=== PATIENT | male | born 1945 | race Caucasian/White ===

== ENCOUNTER 2018-01-16 10:51 | Inpatient (IN) | payer MEDICARE ==
[2018-01-16] MEDS ORDERED: Piperacillin/Tazobactam 4.5 GM VIAL ONE (11:18)
[2018-01-16] MEDS ORDERED: Sodium Chloride 0.9% 100 ML ONE (11:18)
[2018-01-16 11:46] LABS: INR-International Normal Ratio 1.2; PTT 29.5 SEC (22.9-36.1)
[2018-01-16 11:49] LABS: ALT (SGPT) 94 U/L (8-55); AST (SGOT) 59 U/L (5-34); Albumin 4.5 g/dL (3.4-4.8); Alkaline Phosphatase 95 U/L (40-150); Anion Gap 26 mmol/L (10-20); BUN (Urea Nitrogen) 20 mg/dL (8.4-25.7); Bilirubin, Total 11.9 mg/dL (0.2-1.2); Calc. Creatinine Clearance 0 mL/min (70-130); Calcium 9.1 mg/dL (7.8-10.44); Carbon Dioxide 17 mmol/L (23-31); Chloride 99 mmol/L (98-107); Estimated GFR-MDRD 65; Glucose 108 mg/dL (83-110); Lipase 314 U/L (8-78); Protein, Total 7.5 g/dL (5.8-8.1); Sodium 138 mmol/L (136-145)
[2018-01-16 11:54] LABS: Band 12 % (5-11); Hemoglobin 16.3 g/dL (14.0-18.0); Lymphocytes 20 % (21-51); MDiff Complete? YES; Mean Corpuscular HGB CONC 34.6 g/dL (32.0-36.0); Mean Corpuscular Hemoglobin 32.4 pg (27.0-31.0); Mean Corpuscular Volume 93.6 fL (78.0-98.0); Mean Platelet Volume 8.6 fL (7.4-10.4); Neutrophil 67 % (42-75); PLT Morphology Comment Appears Adequate; Platelet Count 121 thou/uL (130-400); RBC Distribution Width 12.6 % (11.5-14.5); RBC Morphology Normal; Red Blood Cell (RBC) Count 4.98 mill/uL (4.70-6.10); Vacuoles SLIGHT; White Blood Cell (WBC) Count 1.9 thou/uL (4.8-10.8)
--- NOTE | 2018-01-16 11:59 | RAD ---
TWO VIEWS CHEST: Comparison: None. History: Cough. FINDINGS: Two views of the chest shows a normal sized cardiomediastinal silhouette. There is a moderate hiatal hernia. There is no evidence of consolidation, mass, or pleural effusion. IMPRESSION: 1. No evidence of acute cardiopulmonary disease. 2. Hiatal hernia. POS: [facility]
[2018-01-16] MEDS ORDERED: Acetaminophen 650 MG Suppository ONE ×2 (12:24→16:26)
[2018-01-16 12:30] LABS: CKMB 2.1 ng/mL (0-6.6); Troponin I Less than 0.010 ng/mL (< 0.028)
--- NOTE | 2018-01-16 12:30 | ULT ---
RIGHT UPPER QUADRANT ULTRASOUND: 01/16/2018 PROVIDED CLINICAL HISTORY: Jaundice and abdominal pain. FINDINGS: The pancreas is largely obscured. The liver demonstrates no evidence for mass or intrahepatic biliar y ductal dilatation. The liver appears mildly enlarged, measuring about 19 cm in craniocaudal dimens ion at the right hepatic lobe. The common duct is prominent, measuring 6 to 7 mm. Multiple shadowin g echogenic foci are seen within the gallbladder lumen, compatible with gallstones. There is no defi nite wall thickening or pericholecystic fluid. Sonographic Belle sign is reported as positive. The right kidney demonstrates no evidence for hydronephrosis or mass. IMPRESSION: 1. Cholelithiasis with reported positive sonographic Belle sign. Correlate with concerns for acute cholecystitis. 2. Mildly prominent common duct. Correlate with laboratory values. POS: [facility]
[2018-01-16 13:08] LABS: Bilirubin Large (Negative); Blood, Urine Negative (Negative); Clarity Clear (Clear); Glucose, Urine (Dipstick) Negative (Negative); Leukocyte Negative (Negative); Nitrite Negative (Negative); Protein, Urine (Dipstick) 30 mg/dL (Neg-Trace); Specific Gravity, Urine 1.025 (1.005-1.030); pH, Urine 5.5 (5.0-9.0)
[2018-01-16 13:15] LABS: Bacteria/HPF None Seen HPF (None Seen); Other Casts/LPF 0-3 COARSE GRAN LPF (0-3 Hyaline); RBC/HPF 0-3 HPF (0-3); Renal Epithelial 0-3 HPF (0-3); Squamous Epithelial None Seen HPF (0-3); Transitional Epithelial 0-3 HPF (0-3); WBC/HPF None Seen HPF (0-3)
[2018-01-16] MEDS ORDERED: Promethazine HCl 25 MG/ML VIAL ONE (13:17)
[2018-01-16 15:44] LABS: Lactic Acid 1.7 mmol/L (0.5-2.2)
[2018-01-16 17:49] LABS: HBCM Index 0.07 S/CO (0-0.79); HBSAg Index 0.21 S/CO (0-0.99); Hep A IgM AB Non-Reactive (NonReactive); Hep A IgM S/CO 0.06 S/CO (0-0.79); Hep B Surf Ag Non-Reactive S/CO (NonReactive); Hep C IgG Ab Non-Reactive (NonReactive); Hep C Index 0.09 S/CO (0-0.79); Hepatitis B Core IgM Abs Non-Reactive (NonReactive)
[2018-01-16] MEDS ORDERED: Acetaminophen 650 MG Suppository PR PRN (17:55)
[2018-01-16] MEDS ORDERED: Piperacillin/Tazobactam 4.5 GM in Sodium Chloride 0.9% 100 ML IVPB SCH (18:00)
[2018-01-16 18:17] VITALS: BMI 23.9
[2018-01-16] MEDS ORDERED: Morphine 2 MG/ML SYRINGE SLOW IVP PRN (19:22)
[2018-01-16] MEDS: Sodium Chloride 0.9% 1,000 ML IV SCH (20:43)
[2018-01-16] MEDS: Piperacillin/Tazobactam 3.375 GM in Sodium Chloride 0.9% 100 ML IVPB SCH (20:44)
[2018-01-16] MEDS: Famotidine/PF 20 mg/2ml Vial SLOW IVP SCH (20:45)
[2018-01-16] MEDS: Vancomycin HCl 1 GM in Premix Bag 1 BAG IVPB SCH (21:50)
--- NOTE | 2018-01-16 22:05 | CON ---
DATE OF CONSULTATION: 01/16/2018 CHIEF COMPLAINT: Jaundice. HISTORY OF PRESENT ILLNESS: This is a 72-year-old male with a known history of gallstones, jaundice, or pancreatitis who presents with diffuse abdominal pain, pain in the right upper quadrant and jaund ice. He is seen in the emergency department where he was found to have gallstones, elevated bilirubi n as well as transaminases. Again, no previous known history of gallstones. He has never had sympto ms in the upper abdomen. He is in telemetry now and he has been hemodynamically stable. PAST MEDICAL HISTORY: He denies. PAST SURGICAL HISTORY: Cataracts. MEDICINES: None. ALLERGIES: No known drug allergies. SOCIAL HISTORY: No smoking, alcohol or other drugs. REVIEW OF SYSTEMS: Ten system review of systems otherwise negative described above. FAMILY HISTORY: Noncontributory to GI malignancy or anesthetic related complication. PHYSICAL EXAMINATION: VITAL SIGNS: Blood pressure is 160/74, pulse 87, respirations are 16. He is afebrile. HEENT: Sclerae are icteric. His oropharynx is clear. NECK: No lymphadenopathy. CHEST: Clear. HEART: Regular rate and rhythm. ABDOMEN: Soft, is mildly tender in the right upper quadrant. No guarding or rebound. EXTREMITIES: No ischemia or edema to extremities. LABORATORY DATA: White blood cell count 1.9, hemoglobin 16, platelet count is 121. He has 12 bands. PT/INR normal. Chemistry: Sodium 138, potassium 4.0, creatinine 1.1, bilirubin 11.9, AST and ALT are 59 and 94. Alkaline phosphatase normal at 95, lipase 314. Hepatitis series negative. ASSESSMENT: Choledocholithiasis and cholelithiasis. PLAN: I do recommend IV antibiotics, probably ERCP first given the extent of the elevation of his bi lirubin. We will discuss with Dr. Schmitz timing of laparoscopic cholecystectomy at time of cholecystectomy, but otherwise I would do that on Sunday.
--- NOTE | 2018-01-16 22:27 | HP ---
CHIEF COMPLAINT: Abdominal pain. HISTORY OF PRESENT ILLNESS: Patient is a 72-year-old male who has no substantial past medical history who was in his usual state of health until a couple of days ago. At that evening, the patient experienced some fevers and chills thought he had actually eaten some food that may have been bad. Overnight, he had chills got to the bathtub and warmed himself up. Following day, he was tired, but was feeling somewhat better. This morning, patient got up, got dressed. We are planning on going to [place]. He had his usual morning cup of coffee, which went well yesterday, but today did not sit well. He started developing some right upper quadrant pain. He described it as a bloating-type pain that was intermittent and 4-5/10 at worst, it was not positional in nature, but it did continue to get worse and he eventually decided to come to the emergency department. He had no associated nausea, vomiting, or diarrhea. He does report that his urine has been tea colored for the last couple of days as well. REVIEW OF SYSTEMS: Negative. Thorough 10-system review except for those things mentioned in the history of present illness. PAST MEDICAL HISTORY: None. PAST SURGICAL HISTORY: Cataractectomy. FAMILY HISTORY: Father of lung cancer. Mother at 93. SOCIAL HISTORY: Patient is a nonsmoker, nondrinker, nondrug user. He is . He is FULL CODE. His would be his surrogate decision maker. ALLERGIES: None. MEDICATIONS: None. PHYSICAL EXAMINATION: VITAL SIGNS: Temperature 98.2, pulse 95, respirations 16, O2 sat 97% on room air, BP 109/71. GENERAL APPEARANCE: Age appropriate male. He is in no distress, appears nontoxic. He is awake, alert, oriented, pleasant, laughing, and joking. HEENT: PERRL. No OP lesions. NECK: Supple and symmetric. CARDIOVASCULAR: Regular rate and rhythm without murmurs, gallops, or rubs. LUNGS: Clear to auscultation bilaterally. ABDOMEN: Soft, nontender, nondistended. Positive bowel sounds, no masses, no organomegaly, no rebound tenderness, and no Belle's sign. SKIN: Warm and dry without edema. LABORATORY DATA: White count 1.9, hemoglobin 16.3, platelets 121. PT 15.0, INR 1.2. Sodium 138, potassium 4.0, chloride 99, CO2 of 17, BUN 20, creatinine 1.1, glucose 108. Lactic acid 3.5, calcium 9.1, AST 59, ALT 94. Ammonia is 41. Troponin less than 0.01. Albumin 4.5. Lipase was 314. Repeat lactic acid is 1.7. Urinalysis is mo colored and large bilirubin. Flu A and B are negative. Chest x-ray is negative. Abdominal ultrasound shows cholelithiasis with reported positive Belle sign. Mild prominent common duct. There is shadowing within the gallbladder lumen consistent with gallstones. No definitive wall thickening or pericholecystic fluid. The liver appeared enlarged. There are no masses in the liver. IMPRESSION AND PLAN: 1. Sepsis. Patient has leukopenia with significant fever and lactic acidosis concerning for sepsis with possible cholecystitis, although that is not entirely clear. Patient has received vancomycin and Zosyn in the ER. We will continue with that for now. He is getting hydrated. We will continue with some IV fluids. 2. Possible cholecystitis. Patient has gallstones without a whole lot of evidence of inflammation, but he does have a bit of a dilated common bile duct. He certainly has significant bilirubinemia with some transaminitis. He is not significantly tender right now in his right upper quadrant, but that appears to come and go. I have consulted GI and the plan is for ERCP in the morning. Also, consulting General Surgery who was contacted by the emergency room physician. 3. Leukopenia. Patient likely has leukopenia secondary to early sepsis. 4. Thrombocytopenia, again likely due to some early sepsis. We will repeat lab values in the morning. 5. We will use SCDs for deep venous thrombosis prophylaxis. Hold off on any other anticoagulation for now. 6. We will give PUD prophylaxis with Pepcid. MTDD
[2018-01-17] MEDS: Piperacillin/Tazobactam 3.375 GM in Sodium Chloride 0.9% 100 ML IVPB SCH ×4 (02:23→20:20)
[2018-01-17 04:16] LABS: ALT (SGPT) 52 U/L (8-55); AST (SGOT) 38 U/L (5-34); Albumin 2.9 g/dL (3.4-4.8); Alkaline Phosphatase 55 U/L (40-150); Anion Gap 12 mmol/L (10-20); BUN (Urea Nitrogen) 20 mg/dL (8.4-25.7); Bilirubin, Total 9.2 mg/dL (0.2-1.2); Calc. Creatinine Clearance 83 mL/min (70-130); Calcium 7.4 mg/dL (7.8-10.44); Carbon Dioxide 20 mmol/L (23-31); Chloride 110 mmol/L (98-107); Estimated GFR-MDRD 81; Globulin 2.2 g/dL (2.4-3.5); Glucose 93 mg/dL (83-110); Potassium 3.8 mmol/L (3.5-5.1); Protein, Total 5.1 g/dL (5.8-8.1); Sodium 138 mmol/L (136-145)
[2018-01-17 04:59] LABS: #Lymphocytes 1.1 thou/uL (1.20-3.40); #Monocytes 0.7 thou/uL (0.11-0.59); #Neutrophils 10.5 thou/uL (1.40-6.50); %Basophils 0.1 % (0.0-1.0); %Eosinophils 0.2 % (0.0-10.0); %Lymphocytes 8.6 % (21.0-51.0); %Neutrophils 85.1 % (42.0-75.0); Hemoglobin 12.2 g/dL (14.0-18.0); Mean Corpuscular HGB CONC 34.5 g/dL (32.0-36.0); Mean Corpuscular Hemoglobin 34.6 pg (27.0-31.0); Mean Platelet Volume 7.8 fL (7.4-10.4); Platelet Count 104 thou/uL (130-400); RBC Distribution Width 12.8 % (11.5-14.5); Red Blood Cell (RBC) Count 3.53 mill/uL (4.70-6.10); White Blood Cell (WBC) Count 12.3 thou/uL (4.8-10.8)
--- NOTE | 2018-01-17 08:27 | CON ---
DATE OF CONSULTATION: 01/16/2018 REASON FOR CONSULTATION: Abdominal pain, nausea, fever, and chills. HISTORY OF PRESENT ILLNESS: Mr. Cas Vaughan is a very pleasant 72-year-old male had no p revious health problems. The patient has had no heart disease, lung disease, diabetes, hypertension. He feels very healthy. He seldom to see a doctor. The patient developed fever and chills on night without any abdominal pain. He did feel bloated and distended and uncomfortable. He took so me Tylenol and his fever broke loose and he felt better and went to sleep. On Sunday, the whole Sun, he had no problems at all. This morning, he felt to have abdominal pain, fever, and chills. T he pain is actually over the right upper quadrant epigastric area. The pain was fzue-ma-rjjvnaka wit h nausea. He also had fever and chills. He went to [facility] and had an abdominal so nogram. Apparently he was used to Tylenol and the fever broke loose and also the pain actually subsi ded. The patient actually wanted to go home, he felt better, but because of abnormal LFTs and also t he sonogram showing gallstones, he was advised to be hospitalized. The patient was transferred from [facility] to the [facility] in [place]. I saw him in the Intermediate ICU this evening. He appears very comfortable. He has no more fever o r chills. He feels fine and his abdominal pain is almost gone. The patient had no similar episodes in the past. Bowel movements are regular. No history of hematochezia or melena. The patient has no relevant history. ALLERGIES: None. SOCIAL HISTORY: The patient is . Does not smoke or drink alcohol. MEDICAL ILLNESSES: None. He has history of heart murmur 30 or 40 years ago, but no nobody ever ment ioned subsequently his heart murmur. As mentioned, the years, he has no hypertension, heart disease, lung disease, diabetes, etc. SURGERIES: Cataract surgery. FAMILY HISTORY: Both parents had gallbladder removed. Father of lung cancer and he was a smoke r. Mother of heart disease at age 93. HOME MEDICATIONS: None. REVIEW OF SYSTEMS: A 10-point system review. Constitutional: He has a good energy level. No fatig ue, no weight loss. History of fever and chills over the last couple of days. HEENT: Eyes: Vision is good. No diplopia. No blurring of vision. Ears: No hearing loss, no ear pain. Nose: No nose bleed. Throat: No sore throat or cough. Respiratory System: No history of chronic cough, hemoptys is, dyspnea. Cardiovascular System: No chest pain, no palpitation, no orthopnea or PND. Gastrointe stinal: As mentioned in history of present illness. Genitourinary: No dysuria, hematuria or freque ncy of urination. Musculoskeletal: Unremarkable. Endocrine: Unremarkable. Hematological: Unrema rkable. PHYSICAL EXAMINATION: GENERAL: The patient is very comfortable. He is awake, alert, and communicative. He is in no distr ess. He is actually afebrile at the present time. VITAL SIGNS: Pulse is around 90, blood pressure is 127/70. HEENT: Conjunctivae icteric. NECK: Supple. No adenitis or thyromegaly noted. CARDIOVASCULAR SYSTEM: First and second heart sounds normal. No murmur heard. LUNGS: Clear to auscultation. ABDOMEN: Soft. Abdomen is nondistended. Abdomen is minimally tender on deep palpation in the right upper quadrant. There is no rebound or guarding. No organomegaly or masses. Bowel sounds are norm al. LABORATORY DATA: His serum lipase is slightly high around 314. The bilirubin level is 11 mg. His t ransaminases are not very much elevated. An abdominal sonogram does show gallstones with normal wall thickening and pericholecystic fluid. The common bile duct is normal at 5 mm. CLINICAL IMPRESSION: 1. Acute cholecystitis. 2. Possibility of common bile duct stone exists. It is possible that the patient actually passed a stone down as he is afebrile and is also not in any pain any more. WBC count 1.9 but does have some mild bandemia. RECOMMENDATIONS: 1. Clear liquid diet tonight. 2. N.p.o. for possible ERCP. I did talk to Dr. Borden who is southeast regional sales manager tonight and I let him know ab out the patient. He will see the patient tonight and decide whether he needs an ERCP. If he wants h im to have ERCP, I will be happy to perform tomorrow morning. In the meantime, we would continue IV antibiotics and analgesics as needed.
[2018-01-17] MEDS ORDERED: Fentanyl 100 MCG/2 ML VIAL ONE (10:04)
[2018-01-17] MEDS ORDERED: Iothalamate Meglumine 60% 50 ML VIAL FS ONE (10:06)
[2018-01-17] MEDS ORDERED: Indomethacin 50 MG SUPP ONE (10:28)
[2018-01-17] MEDS ORDERED: Glycopyrrolate 0.2 MG/ML 5 ML SYRINGE ONE (11:07)
[2018-01-17] MEDS ORDERED: PROPOFOL 200 MG/20 ML VIAL ONE (11:07)
[2018-01-17] MEDS ORDERED: Lidocaine 1% PF 5 ML VIAL ONE (11:07)
[2018-01-17] MEDS ORDERED: Ondansetron PF 4 MG/2 ML Vial ONE (11:07)
[2018-01-17] MEDS ORDERED: Promethazine HCl 25 MG/ML VIAL IM PRN (11:09)
[2018-01-17] MEDS ORDERED: Promethazine HCl 25 MG/ML VIAL SLOW IVP PRN (11:09)
[2018-01-17] MEDS ORDERED: Ondansetron HCl/PF 4 MG/2 ML Vial IVP PRN (11:09)
--- NOTE | 2018-01-17 11:36 | RAD ---
ERCP: Date: 01/17/18 HISTORY: Right upper quadrant pain and jaundice. FINDINGS: Three images are provided during an ERCP. There is faint opacification of the intrahepatic biliary sy stem and there is partial opacification of the common bile duct which is faint. No obvious filling de fect is seen, but provided imaging is suboptimal. Correlation with real-time imaging is essential. IMPRESSION: ERCP as above. POS: [facility]
--- NOTE | 2018-01-17 11:41 | OP ---
DATE OF SURGERY: 01/17/2018 OPERATIVE PROCEDURE: 1. Endoscopic retrograde cholangiopancreatography with papillotomy. 2. Balloon sweep of the bile duct with a balloon size 9-12 mm. PREOPERATIVE DIAGNOSES: Gallstones, abnormal LFTs, jaundice, cholangitis. POSTOPERATIVE DIAGNOSES: 1. 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 2. Normal sized bile duct with no definite filling defect seen. 3. After papillotomy and balloon sweep, there are 3 pigmented stones removed. PROCEDURE IN DETAILS: The patient was intubated and was placed on fluoroscopy table. The patient was placed in left lateral position and turned on to stomach. A bite block was placed. A Pentax video duodenoscope under direct vision passed over the oropharynx, past the GE junction into stomach and subsequently into descending duodenum. The papilla was actually located between two large diverticulum. The papilla was cannulated over a guidewire into the common bile duct. Upon injection of contrast, the bile duct filled up nicely and the bile duct does appear enlarged. No definite filling defect seen. However, because of cholangitis and an elevated bilirubin level, it was elected to do a papillotomy at 12 o'clock position. An 1 cm cut was made over a wire. After the papillotomy, there was brisk drainage of dark bile. The papillotome was exchanged to a balloon size 9-12 mm. The balloon sweep of the bile duct resulted in 3 pigmented stones removed , probably about 6-7 mm in size. There was prompt emptying of the bile duct noted. The balloon and the guidewire removed. The stomach decompressed and the scope was removed. RECOMMENDATIONS: 1. Diet as tolerated, clear liquid diet. 2. LFTs tomorrow. 3. Possible laparoscopic cholecystectomy by Dr. Cas Borden tomorrow. [facility]
--- NOTE | 2018-01-17 12:24 | CON ---
DATE OF CONSULTATION: 01/17/2018 HISTORY: Cas Vaughan is a 72-year-old gentleman from [place], [place] who was in excellent health. He presented yesterday to the ER with right lower abdominal pain, fever and chills. He had a slight cough for several days which has been relatively clear , but no fever or chills. He is a nonsmoker. No history of asthma, pneumonia or TB. Workup revealed presence of gallstones. Initial chest x-ray was normal. PAST MEDICAL HISTORY: Otherwise, unremarkable for diabetes and hypertension. PAST SURGICAL HISTORY: Cataracts. SOCIAL HISTORY: Desk job, consultation. HOME MEDICINES: None. ALLERGIES: None. TOBACCO: None. SOCIAL/FAMILY HISTORY: Unremarkable. REVIEW OF SYSTEMS: Otherwise, 10-point negative. PHYSICAL EXAMINATION: VITAL SIGNS: Blood pressure is 112/82, sats 99% on room air, respiration rate 18, temperature 98. CHEST: Reveals no wheezing or crackles. CARDIAC: Normal S1, S2, no gallops. ABDOMEN: Soft. No masses. LABORATORY: White count 12,000, H&H is 12 and 35, platelet count is low 104, it was 120 on admission. His electrolytes are normal. Liver function is pertinent for a slightly elevated AST of 38. Blood culture is growing gram negative rods, E. coli. His initial chest x-ray showed slightly hazy left base, may be technique, a hiatal hernia, but no other masses were seen. Blood cultures growing gram negative rods, probably E. coli. IMPRESSION: 1. Acute cholecystitis, status post endoscopic retrograde cholangiopancreatography. 2. Escherichia coli sepsis. 3. Cough. PLAN: The plan is to schedule for cholecystectomy tomorrow. I agree with present antibiotics, Zosyn and vancomycin and deescalate when cultures are back. Again the cough is relatively asymptomatic. We will follow and watch him. Probably get an x-ray postop surgery. This is a consultation note, 70 minutes, 50% spent in direct patient care. MAURICE
[2018-01-17 13:02] LABS: ALT (SGPT) 52 U/L (8-55); AST (SGOT) 41 U/L (5-34); Alkaline Phosphatase 58 U/L (40-150); Bilirubin, Total 9.3 mg/dL (0.2-1.2)
[2018-01-17] MEDS: Vancomycin HCl 1 GM in Premix Bag 1 BAG IVPB SCH (13:12)
[2018-01-17] MEDS: Famotidine/PF 20 mg/2ml Vial SLOW IVP SCH ×2 (13:12→20:21)
--- NOTE | 2018-01-17 15:50 | PRG ---
DATE OF SERVICE: 01/17/2018 SUBJECTIVE: The patient feels well, tolerated procedure well, has no complaints today whatsoever. PHYSICAL EXAMINATION: VITAL SIGNS: Temperature 98.3, pulse 72, respirations 18, O2 sat 99% on room air, BP 132/82. GENERAL: Age appropriate male in no distress. He is awake, alert, oriented, pleasant, cooperative. CARDIOVASCULAR: Heart regular rate and rhythm without murmurs, gallops or rubs. LUNGS: Clear to auscultation bilaterally. ABDOMEN: Soft, nontender, nondistended, positive bowel sounds. EXTREMITIES: Warm and dry, no edema. LABORATORY DATA: White blood cell count 12.3, hemoglobin 12.2, platelets 104. Sodium 138, potassium 3.8, chloride 110, CO2 is 20, total bilirubin is 9.2, direct bilirubin 7.0, albumin 2.9. Blood cult ures growing gram negatives, one is now specifically E. coli. IMPRESSION AND PLAN: 1. Sepsis. Patient has apparent sepsis due to cholecystitis. He is on vancomycin and Zosyn. He is now growing E. coli in the blood. We will discontinue the vancomycin, continue the Zosyn and follow up sensitivities. 2. Cholecystitis. Patient had ERCP this morning, had several smaller stones removed. A bile appear ed to be flowing well. GI felt like there was some discoloration of the bile concerning for infectio n. Plan is for cholecystectomy tomorrow. In the meantime, continue with the antibiotics. Patient's white count is up a little bit today, but his bilirubin is slightly down. He appears completely non toxic. 3. Escherichia coli bacteremia. Again, continue with the Zosyn and follow up sensitivities.
[2018-01-17] MEDS: Sodium Chloride 0.9% 1,000 ML IV SCH (20:24)
[2018-01-18] MEDS: Piperacillin/Tazobactam 3.375 GM in Sodium Chloride 0.9% 100 ML IVPB SCH ×3 (01:39→18:55)
[2018-01-18 04:47] LABS: #Eosinphils 0.3 thou/uL (0.0-0.7); #Lymphocytes 1.1 thou/uL (1.20-3.40); #Monocytes 0.5 thou/uL (0.11-0.59); #Neutrophils 6.8 thou/uL (1.40-6.50); %Basophils 0.2 % (0.0-1.0); %Eosinophils 3.5 % (0.0-10.0); %Lymphocytes 12.1 % (21.0-51.0); %Monocytes 6.1 % (0.0-10.0); %Neutrophils 78.3 % (42.0-75.0); Hemoglobin 12.3 g/dL (14.0-18.0); Mean Corpuscular HGB CONC 34.7 g/dL (32.0-36.0); Mean Corpuscular Hemoglobin 34.6 pg (27.0-31.0); Mean Corpuscular Volume 99.8 fL (78.0-98.0); Mean Platelet Volume 7.7 fL (7.4-10.4); Platelet Count 101 thou/uL (130-400); RBC Distribution Width 12.8 % (11.5-14.5); Red Blood Cell (RBC) Count 3.55 mill/uL (4.70-6.10); White Blood Cell (WBC) Count 8.7 thou/uL (4.8-10.8)
[2018-01-18 05:01] LABS: ALT (SGPT) 40 U/L (8-55); AST (SGOT) 27 U/L (5-34); Albumin 2.9 g/dL (3.4-4.8); Alkaline Phosphatase 57 U/L (40-150); Anion Gap 11 mmol/L (10-20); BUN (Urea Nitrogen) 13 mg/dL (8.4-25.7); Bilirubin, Total 9.3 mg/dL (0.2-1.2); Calc. Creatinine Clearance 100 mL/min (70-130); Calcium 7.8 mg/dL (7.8-10.44); Carbon Dioxide 21 mmol/L (23-31); Chloride 109 mmol/L (98-107); Estimated GFR-MDRD Greater than 90; Globulin 2.1 g/dL (2.4-3.5); Glucose 87 mg/dL (83-110); Potassium 3.5 mmol/L (3.5-5.1); Sodium 137 mmol/L (136-145)
[2018-01-18] MEDS: Famotidine/PF 20 mg/2ml Vial SLOW IVP SCH ×2 (08:56→20:41)
--- NOTE | 2018-01-18 09:02 | PRG ---
DATE OF SERVICE: 01/18/2018 This morning he is awake, alert, responsive. No discharge, no fever, no chills, vague abdominal disc omfort. PHYSICAL EXAMINATION: VITAL SIGNS: Sats are 90 on room air, blood pressure 151/84, respiratory 18, temperature 98. CHEST: Chest revealed decreased breath sounds, no wheezing. CARDIAC: Normal S1, S2, no gallops. ABDOMEN: Soft, no masses. LABORATORY: Electrolytes are normal. Labs are normal. IMPRESSION: 1. Escherichia coli sepsis. 2. Cholecystitis. Plan is for surgery today. Pulmonary Critical Care will follow while in the [facility].
[2018-01-18] MEDS ORDERED: Dexamethasone 20 MG/5 ML VIAL ONE (13:05)
[2018-01-18] MEDS ORDERED: PHENYLEPHRINE-NS 100 MCG/ML 10 ML SYRINGE ONE (13:05)
[2018-01-18] MEDS ORDERED: Esmolol 100 MG/10 ML VIAL ONE (13:05)
[2018-01-18] MEDS ORDERED: Lidocaine 1% PF 5 ML VIAL ONE (13:05)
[2018-01-18] MEDS ORDERED: PROPOFOL 200 MG/20 ML VIAL ONE (13:05)
[2018-01-18] MEDS ORDERED: Ondansetron PF 4 MG/2 ML Vial ONE (13:05)
[2018-01-18] MEDS ORDERED: ePHEDrine/0.9% NaCl/PF SYRINGE 50 mg/10 ml ONE (13:05)
[2018-01-18] MEDS ORDERED: Glycopyrrolate 0.2 MG/ML 5 ML SYRINGE ONE (13:05)
[2018-01-18] MEDS ORDERED: Bupivacaine/Epinephrine 0.25% 30 ML VIAL ONE (14:28)
[2018-01-18] MEDS ORDERED: Iothalamate Meglumine 60% 50 ML VIAL FS ONE (14:42)
[2018-01-18] MEDS ORDERED: Promethazine HCl 25 MG/ML VIAL SLOW IVP PRN (16:06)
[2018-01-18] MEDS ORDERED: Promethazine HCl 25 MG/ML VIAL IM PRN ×2 (16:06→17:12)
[2018-01-18] MEDS ORDERED: Ondansetron HCl/PF 4 MG/2 ML Vial IVP PRN (16:06)
[2018-01-18] MEDS ORDERED: Morphine Sulfate 2 MG/ML SYRINGE SLOW IVP PRN (16:06)
[2018-01-18] MEDS ORDERED: HYDROmorphone 2 MG/ML VIAL ONE (16:07)
[2018-01-18] MEDS ORDERED: Fentanyl 100 MCG/2 ML VIAL ONE (16:11)
[2018-01-18] MEDS ORDERED: Morphine 2 MG/ML SYRINGE SLOW IVP PRN (17:12)
[2018-01-18] MEDS ORDERED: hydrALAZINE 20 MG/ML VIAL SLOW IVP PRN (17:12)
[2018-01-18] MEDS ORDERED: Acetaminophen 325 MG TAB PO PRN (17:12)
[2018-01-18] MEDS ORDERED: Morphine 4 MG/ML VIAL SLOW IVP PRN (17:12)
[2018-01-18] MEDS ORDERED: Mag-Al 1200 mg/1200 mg/30 ML UDCUP PO PRN (17:12)
[2018-01-18] MEDS ORDERED: Dextrose 50% Abboject 50 ML SYRINGE SLOW IVP PRN (17:12)
[2018-01-18] MEDS ORDERED: Dextrose 5% in Water 1,000 ML IV PRN (17:12)
[2018-01-18] MEDS ORDERED: Calcium Carbonate 500 MG ChewTAB PO PRN (17:12)
[2018-01-18] MEDS ORDERED: Ondansetron PF 4 MG/2 ML Vial IVP PRN (17:12)
[2018-01-18] MEDS: Sodium Chloride 0.9% 1,000 ML IV SCH ×2 (18:55→20:08)
--- NOTE | 2018-01-18 19:00 | PRG ---
DATE OF SERVICE: 01/18/2018 SUBJECTIVE: This is a 72-year-old male presented to my office with abdominal pain, cholangitis, gallstones, and abnormal LFTs. Underwent an ERCP, papillotomy and balloon sweep of bile duct. He is actually asymptomatic. Afebrile. No abdominal pain, no nausea or vomiting. The plan is being made for laparoscopic cholecystectomy today. He had a repeat liver function test done today. Surprisingly, the liver function tests have not really made any change in terms of number. The bilirubin level was 9.2 yesterday with direct bilirubin of 7.4, today bilirubin is 9.7, hemoglobin 7.8. His Chem-7 is actually normal. His abdomen is very benign and nontender. PLAN: Laparoscopic cholecystectomy and may have to repeat LFTs tomorrow. I will talk to Dr. Banegas before surgery to do a cholangiogram because of persistently elevated bilirubin.. KRISTAD
--- NOTE | 2018-01-18 19:11 | OP ---
DATE OF PROCEDURE: 01/18/2018 PREOPERATIVE DIAGNOSIS: Choledocholithiasis, cholelithiasis. POSTOPERATIVE DIAGNOSIS: Choledocholithiasis, cholelithiasis. PROCEDURE: Laparoscopic cholecystectomy and intraoperative cholangiogram. SURGEON: Bassam Borden M.D. ESTIMATED BLOOD LOSS: Minimal. COMPLICATIONS: None. SPECIMEN: Gallbladder. FINDINGS: Cholangiogram shows good contrast flow into the duodenum without obstruction. TECHNIQUE: The patient was taken to the operating room and placed supine on the table. After genera l anesthetic was obtained, the abdomen was prepped and draped in a sterile fashion. Curved incision made below the umbilicus. Cautery was used to dissect down to and score the fascia. Abdominal cavit y was entered bluntly using a Cici clamp. Holding stitch of PDS placed on each side of the fascia. Light trocar was placed. High-flow pneumoperitoneum was obtained. Upper midline 5 mm port, 2 righ t upper quadrant 5 mm ports were placed under direct visualization. Gallbladder spectrum, gallbladde r fossa, the peritoneum was opened anteriorly and posteriorly. Critical view triangle was seen showi ng only the cystic duct and cystic artery branching from medial to lateral. There were no other bran gypsy structures. A clip was placed on the cystic duct. The cystic duct was quite large. A ductoto my is made just proximal to that. Cholangiocatheter was brought in and placed into the cystic duct a nd a cholangiogram was performed which shows easy good contrast flow into the duodenum without obstru ction. On the late films, there appears to be a potential filling defect. I discussed with ____ _ this could be explained by his known diverticulum. Nevertheless, there was no obstruction. The co ntrast flow with right into the duodenum. Cholangiocatheter was removed. The cystic duct is ligated using a PDS Endoloop. Cystic artery was taken using 2 clips proximal, 1 clip distally, cut using la paroscopic scissors. Cautery was used to dissect the gallbladder, gallbladder fossa. Gallbladder wa s placed in Endocatch bag and brought out through the Light. Meticulous hemostasis seen in the live r bed. Right upper quadrant is irrigated using sterile solution. There was no injury to any intraab dominal structures. All port sites were infiltrated using local anesthetic. All ports were removed under camera visualization and pneumoperitoneum was let down. PDS was used to close the fascial defe ct below the umbilicus. All incisions were irrigated and closed using 4-0 Monocryl and Dermabond. T he patient was en route to recovery in stable condition. All instrument counts, needle counts, lap c ounts were correct.
--- NOTE | 2018-01-18 19:39 | RAD ---
CHOLANGIOGRAM IN SURGERY: 01/18/18 COMPARISON: Gallbladder ultrasound 01/18/18. HISTORY: Cholelithiasis with elevated LFTs. FINDINGS/IMPRESSION: Multiple limited intraoperative fluoroscopic views of the cholangiogram taken in surgery were submitt ed for interpretation. Contrast is seen in the cystic duct and common bile ducts. At the region of in sertion of the common bile duct into the duodenum, there is an apparent filling defect on one of the images. This may represent an air bubble and/or the sphincter of Oddi rather than a stone within the common bile duct. It is difficult to determine whether this persists. Contrast is also seen passing into the duodenum. POS: [facility]
[2018-01-18] MEDS: Famotidine 20 MG TAB PO SCH (20:14)
--- NOTE | 2018-01-18 20:22 | PDOC.PN ---
- Subjective Encounter Start Date: 01/18/18 Encounter Start Time: 08:45 Doing well today. Feels well. Has no complaints. - Objective Resuscitation Status: Resuscitation Status FULL:Full Resuscitation Vital Signs & Weight: Vital Signs (12 hours) Temp Pulse Resp BP Pulse Ox 01/18/18 17:00 93 L 01/18/18 11:41 98.1 F 75 28 H 127/87 96 Weight Weight 176 lb 11.2 oz I&O: 01/17/18 01/18/18 01/19/18 06:59 06:59 06:59 Intake Total 1391 1979 0 Balance 1391 1979 0 Result Diagrams: 01/18/18 04:15 01/18/18 04:15 Phys Exam - Physical Examination Constitutional: NAD Respiratory: no wheezing, no rales, no rhonchi, clear to auscultation bilateral Cardiovascular: RRR, no significant murmur Gastrointestinal: soft, non-tender, no distention, positive bowel sounds Musculoskeletal: no edema Psychiatric: normal affect, A&O x 3 Skin: no rash Deviation from normal: mild jaundice Dx/Plan (1) Sepsis Code(s): A41.9 - SEPSIS, UNSPECIFIED ORGANISM Status: Acute (2) Cholecystitis Code(s): K81.9 - CHOLECYSTITIS, UNSPECIFIED Status: Acute (3) E coli bacteremia Code(s): R78.81 - BACTEREMIA Status: Acute (4) Hyperbilirubinemia Code(s): E80.6 - OTHER DISORDERS OF BILIRUBIN METABOLISM Status: Acute - Plan * Growing e coli on bcx. Continue Zosyn. Will continue Vanc until after surgery. Will likely need to continue IV abx til tomorrow. Recheck LFT's tomorrow.
[2018-01-18] MEDS: HYDROcodone/Acetaminophen 10/325 mg Tablet PO PRN (23:25)
[2018-01-19 05:56] LABS: #Lymphocytes 0.5 thou/uL (1.20-3.40); #Monocytes 0.4 thou/uL (0.11-0.59); #Neutrophils 6.4 thou/uL (1.40-6.50); %Basophils 0.2 % (0.0-1.0); %Eosinophils 0.1 % (0.0-10.0); %Lymphocytes 7.3 % (21.0-51.0); %Monocytes 5.6 % (0.0-10.0); %Neutrophils 86.8 % (42.0-75.0); Hemoglobin 12.6 g/dL (14.0-18.0); Mean Corpuscular HGB CONC 34.1 g/dL (32.0-36.0); Mean Corpuscular Hemoglobin 33.9 pg (27.0-31.0); Mean Corpuscular Volume 99.4 fL (78.0-98.0); Mean Platelet Volume 7.8 fL (7.4-10.4); Platelet Count 130 thou/uL (130-400); RBC Distribution Width 12.4 % (11.5-14.5); Red Blood Cell (RBC) Count 3.72 mill/uL (4.70-6.10); White Blood Cell (WBC) Count 7.4 thou/uL (4.8-10.8)
[2018-01-19 06:19] LABS: ALT (SGPT) 34 U/L (8-55); AST (SGOT) 22 U/L (5-34); Alkaline Phosphatase 58 U/L (40-150); Anion Gap 12 mmol/L (10-20); BUN (Urea Nitrogen) 11 mg/dL (8.4-25.7); Bilirubin, Total 7.6 mg/dL (0.2-1.2); Calc. Creatinine Clearance 100 mL/min (70-130); Calcium 7.9 mg/dL (7.8-10.44); Carbon Dioxide 22 mmol/L (23-31); Chloride 106 mmol/L (98-107); Estimated GFR-MDRD Greater than 90; Globulin 2.3 g/dL (2.4-3.5); Glucose 133 mg/dL (83-110); Lipase 5 U/L (8-78); Potassium 3.9 mmol/L (3.5-5.1); Protein, Total 5.3 g/dL (5.8-8.1); Sodium 136 mmol/L (136-145)
[2018-01-19] MEDS: Sodium Chloride 0.9% 1,000 ML IV SCH (07:10)
[2018-01-19] MEDS: Famotidine 20 MG TAB PO SCH ×2 (08:26→20:49)
[2018-01-19] MEDS: Famotidine/PF 20 mg/2ml Vial SLOW IVP SCH ×2 (08:29→20:50)
--- NOTE | 2018-01-19 09:48 | PDOC.PN ---
- Subjective Encounter Start Date: 01/19/18 Encounter Start Time: 09:46 feels great. Ate breakfast. Ambulated. No complaints. - Objective Resuscitation Status: Resuscitation Status FULL:Full Resuscitation Vital Signs & Weight: Vital Signs (12 hours) Temp Pulse Resp BP Pulse Ox 01/19/18 07:26 97.8 F 70 18 120/68 94 L 01/19/18 00:04 98.1 F 83 14 113/72 95 Weight Weight 176 lb 11.2 oz I&O: 01/18/18 01/19/18 01/20/18 06:59 06:59 06:59 Intake Total 1979 1320 Balance 1979 1320 Result Diagrams: 01/19/18 05:09 01/19/18 05:09 Phys Exam - Physical Examination Constitutional: NAD Respiratory: no wheezing, no rales, no rhonchi, clear to auscultation bilateral Cardiovascular: RRR frequent ectopy. Likely PVC's Gastrointestinal: soft, no distention Musculoskeletal: no edema Dx/Plan (1) Sepsis Code(s): A41.9 - SEPSIS, UNSPECIFIED ORGANISM Status: Resolved (2) Cholecystitis Code(s): K81.9 - CHOLECYSTITIS, UNSPECIFIED Status: Acute Comment: S/P danilo. (3) E coli bacteremia Code(s): R78.81 - BACTEREMIA Status: Acute Comment: Very sensitive. Can convert to po Levaquin. (4) Hyperbilirubinemia Code(s): E80.6 - OTHER DISORDERS OF BILIRUBIN METABOLISM Status: Acute Comment: Improving after danilo. (5) Ventricular ectopy Code(s): I49.3 - VENTRICULAR PREMATURE DEPOLARIZATION Status: Acute Comment : EKG. If benign PVC's, no intervention. - Plan * If EKG benign, ok to discharge home from medical perspective. Will await surg eval. Saline lock and ambulate. * Will need to stay on po levaquin for 10 days for the bacteremia.
[2018-01-19] MEDS: HYDROcodone/Acetaminophen 10/325 mg Tablet PO PRN ×2 (13:05→20:49)
--- NOTE | 2018-01-19 14:18 | PDOC.EVN ---
Event Note - Event Note Event Note: EKG revealed afib with controlled rate. Notified Dr. Garza. Ordered echo. Transferring to tele.
[2018-01-19] MEDS ORDERED: Amiodarone In Dextrose 200 ML IVPB SCH (14:45)
[2018-01-19] MEDS ORDERED: Amiodarone HCl 450 MG in Dextrose 5% in Water 250 ML IVPB SCH (16:30)
[2018-01-19] MEDS ORDERED: Amiodarone HCl 150 MG in Dextrose 5% in Water 100 ML IVPB SCH (16:30)
--- NOTE | 2018-01-19 17:25 | HP ---
Cas Vaughan is doing well after ERCP, laparoscopic cholecystectomy, normal cholangiograms with duod enal diverticulum. PHYSICAL EXAMINATION: VITAL SIGNS: Normal, 97.9, 81, 111/64. LUNGS: Clear to auscultation. CARDIAC: Irregularly irregular, appreciated being Afib today and Medical has moved him to telemetry to evaluate this. Patient reports prior history of palpitations or funny feelings in his chest, has never had a cardiac history. Hemodynamically stable. He is ambulating and eating well without probl ems. Surgical wounds look good. ABDOMEN: Soft, nontender, nondistended. ASSESSMENT AND PLAN: Doing well. Would plan discharge home after his atrial fibrillation workup. H e can be discharged Medical if they are ready to do so. He should follow up with Dr. Suha reyes the next 2-3 weeks. Diet and activities as tolerated. There are no restrictions in lifting.
[2018-01-19 22:07] LABS: CKMB 1.3 ng/mL (0-6.6); Troponin I Less than 0.010 ng/mL (< 0.028)
--- NOTE | 2018-01-20 01:28 | CON ---
DATE OF CONSULTATION: 01/19/2018 HISTORY OF PRESENT ILLNESS: Cas Vaughan is a 72-year-old white male who was admitted on the 01/16/2018. For 2-3 days prior to that had been having fever and chills intermittently. He then developed right upper quadrant abdominal pain. He came to the emergency room, had a temperature of 98.2, white count of 1.9 and ultimately grew E. coli in 2/2 blood cultures. Abdominal ultrasound revealed cholelithiasis with a positive Belle's sign. He underwent laparoscopic cholecystectomy and intraoperative cholangiogram by Dr. Borden on 01/18/18. He was to be discharged today; however, on rounds Dr. Holliday noted that he had an irregular heartbeat, although he was not tachycardic. EKG showed there was in atrial fibrillation and was transferred to telemetry and given a bolus of amiodarone 150 mg followed by drip protocol and has since converted to sinus rhythm. Mr. Vaughan denies any previous cardiac problems. He denies any chest pains or shortness of breath. He does states that every 6 months, he may feel his heart beating irregularly and maybe rapidly for approximately 5-10 minutes and then it will resolve. PAST MEDICAL HISTORY: No history of hypertension, diabetes or hypercholesterolemia. OPERATIONS: Laparoscopic cholecystectomy and cataract surgery. MEDICATIONS AT HOME: None. SOCIAL HISTORY: Does not smoke or drink. FAMILY HISTORY: Negative for coronary artery disease. REVIEW OF SYSTEMS: Twelve-point review of systems unremarkable except as noted above. PHYSICAL EXAMINATION: VITAL SIGNS: Blood pressure 117/60, pulse is 69 and regular. HEENT: PERRL. NECK: Supple. CHEST: Clear. CARDIAC: S1, S2 normal, without any S3, S4 or murmurs. ABDOMEN: Normal bowel sounds, mild right upper quadrant tenderness. EXTREMITIES: Revealed no clubbing, cyanosis or edema. NEUROLOGIC: Grossly intact. SKIN: Warm and dry. LABORATORY DATA: EKG revealed atrial fibrillation and low voltage small Q-wave in lead III. Hemoglobin 12.6, hematocrit 37.0. White count 7400, platelets 130 ,000. INR 1.2. Sodium 136, potassium 3.9, chloride 106, carbon dioxide 22, BUN 11, creatinine 0.77. TSH is normal. Echocardiogram revealed ejection fraction of 50%-55% with mild mitral regurgitation, aortic valvular sclerosis, mild aortic regurgitation, mild tricuspid regurgitation, and mild pulmonic regurgitation. IMPRESSION: 1. Paroxysmal atrial fibrillation with current episode resolving with intravenous amiodarone. He did not have any significant tachycardic episodes. 2. Intermittent palpitations occurring once every 6 months. 3. Status post laparoscopic cholecystectomy. 4. Escherichia coli sepsis. RECOMMENDATIONS: Since he has converted to sinus, I would discontinue the amiodarone at this time. With his history of intermittent palpitations, I would recommend that he go to the office the day after discharge to lemon picker a monitor to wear for 1 month. Also, I feel he should be placed on oral anticoagulants and we will check with the surgeons tomorrow when they feel that could be started; however, I do not feel comfortable starting him at this time with his laparoscopic cholecystectomy just over 24 hours ago. MAURICE
[2018-01-20 05:54] LABS: #Eosinphils 0.1 thou/uL (0.0-0.7); #Lymphocytes 1.5 thou/uL (1.20-3.40); #Monocytes 0.7 thou/uL (0.11-0.59); #Neutrophils 6.7 thou/uL (1.40-6.50); %Basophils 0.3 % (0.0-1.0); %Eosinophils 1.4 % (0.0-10.0); %Lymphocytes 16.7 % (21.0-51.0); %Monocytes 8.1 % (0.0-10.0); %Neutrophils 73.5 % (42.0-75.0); Hemoglobin 13.7 g/dL (14.0-18.0); Mean Corpuscular HGB CONC 34.3 g/dL (32.0-36.0); Mean Corpuscular Hemoglobin 34.6 pg (27.0-31.0); Mean Platelet Volume 7.8 fL (7.4-10.4); Platelet Count 141 thou/uL (130-400); RBC Distribution Width 12.7 % (11.5-14.5); Red Blood Cell (RBC) Count 3.96 mill/uL (4.70-6.10); White Blood Cell (WBC) Count 9.2 thou/uL (4.8-10.8)
[2018-01-20 06:12] LABS: Anion Gap 9 mmol/L (10-20); BUN (Urea Nitrogen) 14 mg/dL (8.4-25.7); Calc. Creatinine Clearance 97 mL/min (70-130); Calcium 8.5 mg/dL (7.8-10.44); Carbon Dioxide 29 mmol/L (23-31); Chloride 105 mmol/L (98-107); Estimated GFR-MDRD Greater than 90; Glucose 109 mg/dL (83-110); Potassium 3.8 mmol/L (3.5-5.1); Sodium 139 mmol/L (136-145)
[2018-01-20] MEDS: Famotidine 20 MG TAB PO SCH (08:58)
[2018-01-20] MEDS: Famotidine/PF 20 mg/2ml Vial SLOW IVP SCH (09:10)
--- NOTE | 2018-01-20 12:38 | DIS ---
DATE OF ADMISSION: 01/16/2018 DATE OF DISCHARGE: 01/20/2018 PRIMARY CARE PROVIDER: Vimal Tijerina PA-C. CONSULTATIONS DURING THIS HOSPITALIZATION: Cardiology, Dr. Garza; General surgery, Dr. Borden; G astroenterology, Dr. Schmitz, and Dr. Quinn, Pulmonology. DISCHARGE DIAGNOSES: 1. Sepsis. 2. Escherichia coli bacteremia. 3. Cholecystitis. 4. Atrial fibrillation. CONDITION OF PATIENT ON THE DAY OF DISCHARGE: Stable. I assessed Mr. Vaughan on the day of discharg e. He denies any chest pain or shortness of breath. Vital signs are stable. S1 and S2 are heard, r egular. Lungs are clear to auscultation bilaterally. DISCHARGE MEDICATIONS: Apixaban 5 mg 2 times a day, Zofran 4 mg every 6 hours as needed, [place] 7.5/3 25 one tablet every 6 hours as needed, levofloxacin 500 mg daily for 10 more days. HOSPITAL COURSE: Mr. Vaughan is a pleasant 72-year-old gentleman who was admitted to [facility] on 01/16/2018 for sepsis and cholecystitis. Please refer to Dr. Holliday's history and physical note dated 01/16/2018. He was seen by Gastroenterology, General Surgery and Pulmonolog y Services. On 01/17/2018, he underwent ERCP with papillotomy and balloon sweep of the bile duct wit h balloon size of 9-12 mm. He was also found to have a large diverticulum in the second part of the duodenum, normal sized bile duct with no definite filling defect. Three pigmented stones were remove d after papillotomy and balloon sweep. On01/18/2018, he underwent laparoscopic cholecystectomy for choledocholithiasis and cholelithiasis. He was also found to have bacteremia with Escherichia coli. The organism was resistant to ampicillin , but was otherwise pansensitive. On 01/19/2018, Mr. Vaughan was found to be in atrial fibrillation. He was seen by Cardiology Service . He had a 2D echocardiogram, which showed left ventricular ejection fraction of 50%-55%, mild kike l regurgitation, sclerotic aortic valve, mild aortic regurgitation, mild tricuspid regurgitation, and mild pulmonic regurgitation. He was started on amiodarone and converted to normal sinus rhythm. Af ter discussion between General Surgery and Cardiology Service, Mr. Vaughan has been started on apixab an. I am also discharging him home on levofloxacin for 10 more days. He is advised to follow up wit h his primary care provider in 3-5 days and with General Surgery Service in 2-3 weeks. On the day of discharge, Mr. Vaughan has white count 9200, hemoglobin 13.7, platelet count 141,000, normal sodium, normal potassium, and normal creatinine. His TSH was normal during this hospitalization. Many thanks for allowing me to participate in your patient's care. Please feel free to contact me wi th any questions or concerns. DISCHARGE DESTINATION: Home. TOTAL AMOUNT OF TIME SPENT COORDINATING THIS DISCHARGE: 32 minutes.
[2018-01-20 13:00] VITALS: BP 161/86; TEMP 98.4
== END 2018-01-20 13:34 | disposition home or self-care (01) | DRG 854 ==
LOC: SCSER 10:51 → IMCU/EMU 17:47 → SURG A 01-18 16:58 → 2NO 01-19 16:03
PROVIDERS: ADMIT Internal Medicine; ATTEND Internal Medicine
PROC: 0FT44ZZ Resection of Gallbladder, Percutaneous Endoscopic Approach (ICD-10-PCS; principal; 2018-01-18)
PROC: 0F798ZZ Dilation of Common Bile Duct, Via Natural or Artificial Opening Endoscopic (ICD-10-PCS; 2018-01-18)
PROC: BF10YZZ Fluoroscopy of Bile Ducts using Other Contrast (ICD-10-PCS; 2018-01-18)
DX: A41.51 Sepsis due to Escherichia coli [E. coli] (principal); R17 Unspecified jaundice; K80.00 Calculus of gallbladder with acute cholecystitis without obstruction; K83.09 Other cholangitis; D69.6 Thrombocytopenia, unspecified; E78.2 Mixed hyperlipidemia; I48.0 Paroxysmal atrial fibrillation
CPT/HCPCS: 36415; 47532; 71046; 74330; 76705; 80048; 80053; 80074; 81003; 81015; 82140; 82553; 83605; 83690; 83735; 84443; 84484; 85025; 85610; 85730; 87040; 87077; 87086; 87149; 87186; 87804; 88304; 93005; 93010; 93306; 96360; 96361; 96365; 96367; J0282; J1100; J1170; J1610; J2001; J2270; J2405; J2543; J2550; J2704; J3010; J3370; J7050; J7070; Q9961; S0028

== ENCOUNTER 2018-01-27 14:16 | Observation (INO) | payer MEDICARE ==
[2018-01-27 14:46] LABS: #Basophils 0.1 thou/uL (0.0-0.2); #Eosinphils 0.2 thou/uL (0.0-0.7); #Lymphocytes 2.2 thou/uL (1.20-3.40); #Monocytes 0.5 thou/uL (0.11-0.59); #Neutrophils 3.3 thou/uL (1.40-6.50); %Basophils 1.1 % (0.0-1.0); %Eosinophils 3.5 % (0.0-10.0); %Lymphocytes 34.3 % (21.0-51.0); %Monocytes 8.6 % (0.0-10.0); %Neutrophils 52.5 % (42.0-75.0); Hemoglobin 14.9 g/dL (14.0-18.0); Mean Corpuscular HGB CONC 34.2 g/dL (32.0-36.0); Mean Corpuscular Hemoglobin 33.8 pg (27.0-31.0); Mean Corpuscular Volume 98.7 fL (78.0-98.0); Mean Platelet Volume 6.5 fL (7.4-10.4); Platelet Count 240 thou/uL (130-400); Red Blood Cell (RBC) Count 4.42 mill/uL (4.70-6.10); White Blood Cell (WBC) Count 6.3 thou/uL (4.8-10.8)
[2018-01-27 15:00] LABS: ALT (SGPT) 42 U/L (8-55); AST (SGOT) 31 U/L (5-34); Alkaline Phosphatase 89 U/L (40-150); Anion Gap 13 mmol/L (10-20); BUN (Urea Nitrogen) 14 mg/dL (8.4-25.7); Bilirubin, Total 2.6 mg/dL (0.2-1.2); CK (CPK) 64 U/L (30-200); Calc. Creatinine Clearance 0 mL/min (70-130); Carbon Dioxide 23 mmol/L (23-31); Chloride 103 mmol/L (98-107); Estimated GFR-MDRD Greater than 90; Glucose 104 mg/dL (83-110); Lipase 125 U/L (8-78); Potassium 3.8 mmol/L (3.5-5.1); Sodium 135 mmol/L (136-145)
[2018-01-27 15:04] LABS: CKMB 1.8 ng/mL (0-6.6); Troponin I Less than 0.010 ng/mL (< 0.028)
--- NOTE | 2018-01-27 15:27 | RAD ---
PORTABLE CHEST: HISTORY: Holter monitor shows V-tach. FINDINGS: The heart size is within normal limits for portable technique. Mediastinal structures appear unremar kable with atherosclerotic change of the aorta. The lungs are clear of any infiltrates. IMPRESSION: No active intrathoracic disease. POS: [facility]
--- NOTE | 2018-01-27 16:17 | CON ---
DATE OF CONSULTATION: 01/27/2018 REASON FOR CONSULTATION: Nonsustained VT. HISTORY OF PRESENT ILLNESS: Mr. Vaughan is a very pleasant 72-year-old gentleman who recently was se en and evaluated in the hospital on 10/20/2017. He was seen and evaluated by Dr. Parrish Garza. Mariano williamson had paroxysmal atrial fibrillation. A 3-week event recorder was placed. The patient was also sept ic with Escherichia coli. He was placed on Levaquin. I received a call early this morning that Mr. Vaughan had 9 seconds of nonsustained VT. This was con firmed. The patient had no symptoms. He was sleeping. No syncope, presyncope or other associated symptoms. No previous history of underlying coronary roberta ry disease. He did have an echo with Doppler performed on 01/19/2018 that showed a normal LVEF. PAST MEDICAL HISTORY: Recent Escherichia coli sepsis. PAST SURGICAL HISTORY: Cholecystectomy, cataract surgery. HOME MEDICATIONS: LEVAQUIN. FAMILY HISTORY: Negative for CAD. SOCIAL HISTORY: No current tobacco or alcohol use. REVIEW OF SYSTEMS: Ten-point review of systems is reviewed and is as above, otherwise negative. PHYSICAL EXAMINATION: VITAL SIGNS: Blood [id number], pulse 80, respirations 20. GENERAL: Patient is a pleasant male who is in no acute distress. The patient appears his stated age. NEUROLOGIC: The patient is alert and oriented times 3 with no focal neurologic deficits. HEENT: Sclerae without icterus. Mouth has moist mucous membranes with normal pallor. NECK: No JVD. Carotid upstroke brisk. No bruits bilaterally. LUNGS: Clear to auscultation with unlabored respirations. BACK: No scoliosis or kyphosis. CARDIAC: Regular rate and rhythm with normal S1 and S2. No S3 or S4 noted. No significant rubs, murmurs, thrills, or gallops noted throughout the precordium. PMI is not displa thor. There is no parasternal heave. ABDOMEN: Soft, nontender, nondistended. No peritoneal signs present. No hepatosplenomegaly. No abnormal striae. EXTREMITIES: 2+ femoral and 2+ dorsalis pedis pulses. No cyanosis, clubbing, or edema. SKIN: No gross abnormalities. EKG showed normal sinus rhythm with a normal QT interval. PERTINENT LABORATORIES: Hemoglobin 14.9, hematocrit 43.6, platelet count of 240. Sodium 135, otherw ise within normal limits. IMPRESSION: Nonsustained ventricular tachycardia. RECOMMENDATIONS: There is concern for torsades de pointes although the nonsustained VT was not consi stent with torsades. I do recommend he be up placed in observation overnight to assess for malignant dysrhythmias. He is currently in lead levofloxacin and would discontinue. May benefit from low dos e beta ketan in a.m. This may be unrelated to levofloxacin, but still concerned given the above. We will notify Dr. Garza in a.m.
--- NOTE | 2018-01-27 17:25 | HP ---
DATE OF ADMISSION: 01/27/2018 TIME OF SERVICE: 1530 hours. PRIMARY CARE PHYSICIAN: Vimal Tijerina PA-C PRIMARY MORTISING MACHINE OPERATOR: Parrish Garza MD The patient was seen earlier by Dr. Rascon. CHIEF COMPLAINT: Abnormal rhythm. HISTORY OF PRESENT ILLNESS: Mr. Vaughan is a 72-year-old gentleman recently in here January 12 thr ou for acute cholecystitis and E. coli bacteremia. He was discharged on the on oral levo floxacin. During the hospital stay, he did have some arrhythmias and was placed on a LINQ monitor. He received a call today from Dr. Rascon's office telling him to go to the ER for evaluation as he had a 7-beat run of ventricular tachycardia. The patient was allegedly seen by Dr. Rascon in the ER who felt that this may be related to prolon ged QT from his levofloxacin. The patient was asleep during the episode at 2:00 a.m. He denies any chest pain or shortness of breath. No nausea or vomiting. Nothing woke him up out of sleep. He fee ls fine. No other current complaints. PAST MEDICAL HISTORY: 1. Bilateral cataracts, status post removal. 2. Arrhythmia. 3. Recent cholecystitis. PAST SURGICAL HISTORY: 1. Bilateral cataracts. 2. Cholecystectomy last month. HOME MEDICATIONS: Have been reviewed. 1. He is currently on levofloxacin, for 2 more days. His most recent dose was this morning at 6:00 a.m. 2. Eliquis 5 mg p.o. b.i.d. 3. Hydrocodone/APAP 1 p.o. q.4 hours p.r.n. 4. Levofloxacin 500 mg p.o. daily. 5. Zofran 4 mg p.o. q.6 hours p.r.n. ALLERGIES: NKDA. FAMILY HISTORY: Negative for clotting or bleeding disorder. No immune dysfunction. SOCIAL HISTORY: Negative for habits x3. He is . His accompanies him. REVIEW OF SYSTEMS: All systems reviewed and negative except as stated as per HPI. PHYSICAL EXAMINATION: VITAL SIGNS: Temperature currently is at 98.5, pulse 74, blood pressure 165/97, respiratory rate 20, saturating 98% on room air. GENERAL: He is awake. He is alert. He is oriented x3. Well-developed, well-nourished, older white male who appears to be in no distress. HEENT: Normocephalic, atraumatic. Pupils equal, round, and reactive to light bilaterally. Mucous m embranes are moist. No visible lesions or thrush. NECK: Supple. He has no thyromegaly, JVD, or thyromegaly with normal carotid upstroke. There are n o bruits. LUNGS: Clear. No wheezing, rales, or rhonchi. ABDOMEN: Soft, nontender, nondistended. Has prior cholecystectomy, laparoscopic incisional scars th at are healing well. There is no erythema, no fluctuance. Good bowel sounds in all 4 quadrants. EXTREMITIES: No cyanosis, no clubbing, no edema. SKIN: Warm, moist, and well perfused. There are no rashes or lesions. MUSCULOSKELETAL: Normal to inspection. Large joints appear normal. There is no evidence of inflamm ation or palpable effusion. NEUROLOGIC: Cranial nerves II-XII are grossly intact. He has no focal deficits. Normal speech and 5/5 strength. LABORATORY DATA: CBC showed a white count of 6.3, hemoglobin is 14.9, hematocrit of 42.6, and platel et count is 240,000 with normal differential. Chemistry showed a sodium of 135, potassium 3.8, chloride 103, bicarbonate 23, BUN 14, creatinine 0.8 3, glucose of 104 with calcium of 9. Total bilirubin slightly elevated at 2.6. Liver function is ot herwise within normal limits. Lipase is slightly elevated at 125. CK-MB was 1.8 with a troponin I l ess than 0.010. RADIOGRAPHIC STUDIES: Chest x-ray demonstrated no acute cardiopulmonary disease. ASSESSMENT AND PLAN: 1. Nonsustained ventricular tachycardia while on Levaquin and Zofran. Cardiology has already seen h im, Dr. Garza. We will continue to monitor him overnight and get serial cardiac biomarkers. We w ill continue his home medications otherwise and we will watch. 2. Recent Escherichia coli bacteremia from acute cholecystitis. He has already taken his dose of le vofloxacin today. We will give him a dose of Rocephin tomorrow and get him off the fluoroquinolone g iven the arrhythmias. That should complete his full course of therapy at that point. 3. Arrhythmia with ventricular ectopy. He is currently on Eliquis, which we will continue at this t basilio. Further changes per Dr. Garza or Dr. Rascon. 4. Hyperbilirubinemia, seems to be fairly chronic since his cholecystectomy. We will continue to baudilio wells.
[2018-01-27] MEDS ORDERED: HYDROcodone/Acetaminophen 5/325 mg Tablet PO PRN ×2 (17:46)
[2018-01-27] MEDS ORDERED: Acetaminophen 325 MG TAB PO PRN (17:46)
[2018-01-27] MEDS ORDERED: Acetaminophen 650 MG Suppository PR PRN (17:46)
[2018-01-27 17:52] VITALS: BMI 22.7
[2018-01-27 18:25] LABS: CKMB 1.6 ng/mL (0-6.6); Troponin I Less than 0.010 ng/mL (< 0.028)
[2018-01-27] MEDS: Apixaban 5 MG TAB PO SCH (20:10)
[2018-01-27] MEDS: Famotidine 20 MG TAB PO SCH (20:10)
[2018-01-28 01:32] LABS: #Basophils 0.1 thou/uL (0.0-0.2); #Eosinphils 0.2 thou/uL (0.0-0.7); #Monocytes 0.6 thou/uL (0.11-0.59); #Neutrophils 2.3 thou/uL (1.40-6.50); %Basophils 1.1 % (0.0-1.0); %Eosinophils 3.8 % (0.0-10.0); %Lymphocytes 38.6 % (21.0-51.0); %Monocytes 11.5 % (0.0-10.0); Hemoglobin 13.2 g/dL (14.0-18.0); Mean Corpuscular HGB CONC 34.9 g/dL (32.0-36.0); Mean Corpuscular Hemoglobin 34.2 pg (27.0-31.0); Mean Corpuscular Volume 97.9 fL (78.0-98.0); Mean Platelet Volume 6.6 fL (7.4-10.4); Platelet Count 234 thou/uL (130-400); RBC Distribution Width 11.9 % (11.5-14.5); Red Blood Cell (RBC) Count 3.88 mill/uL (4.70-6.10); White Blood Cell (WBC) Count 5.2 thou/uL (4.8-10.8)
[2018-01-28 01:59] LABS: Anion Gap 11 mmol/L (10-20); BUN (Urea Nitrogen) 14 mg/dL (8.4-25.7); Calc. Creatinine Clearance 90 mL/min (70-130); Calcium 8.8 mg/dL (7.8-10.44); Carbon Dioxide 25 mmol/L (23-31); Chloride 106 mmol/L (98-107); Estimated GFR-MDRD Greater than 90; Glucose 101 mg/dL (83-110); Magnesium 2.1 mg/dL (1.6-2.6); Potassium 3.8 mmol/L (3.5-5.1); Sodium 138 mmol/L (136-145)
[2018-01-28 02:05] LABS: CKMB 1.2 ng/mL (0-6.6); Troponin I Less than 0.010 ng/mL (< 0.028)
[2018-01-28] MEDS: Apixaban 5 MG TAB PO SCH (08:37)
[2018-01-28] MEDS: Famotidine 20 MG TAB PO SCH ×2 (08:38→20:06)
[2018-01-28] MEDS ORDERED: cefTRIAXone\\ROCEPHIN 2 GM in Sodium Chloride 0.9% 100 ML IVPB SCH (09:00)
--- NOTE | 2018-01-28 16:38 | PDOC.PN ---
- Subjective Encounter Start Date: 01/28/18 Encounter Start Time: 16:36 Subjective: no chest pain - Objective Resuscitation Status: Resuscitation Status FULL:Full Resuscitation MAR Reviewed: Yes Vital Signs & Weight: Vital Signs (12 hours) Temp Pulse Resp BP Pulse Ox 01/28/18 11:23 98.1 F 73 16 131/71 95 01/28/18 07:16 98.1 F 67 16 132/76 95 Weight Admit Weight 172 lb 8 oz Weight 172 lb 8 oz I&O: 01/27/18 01/28/18 01/29/18 06:59 06:59 06:59 Intake Total 680 700 Balance 680 700 Result Diagrams: 01/28/18 01:15 01/28/18 01:15 Phys Exam - Physical Examination Neck: no JVD Respiratory: clear to auscultation bilateral Cardiovascular: RRR, no significant murmur Gastrointestinal: soft, non-tender, positive bowel sounds Musculoskeletal: no edema Dx/Plan (1) NSVT (nonsustained ventricular tachycardia) Code(s): I47.2 - VENTRICULAR TACHYCARDIA Status: Acute (2) Atrial fibrillation, currently in sinus rhythm Code(s): Z86.79 - PERSONAL HISTORY OF OTHER DISEASES OF THE CIRCULATORY SYSTEM Status: Acute - Plan stress test tomorrow, discussed with Dr Garza * .
[2018-01-29] MEDS ORDERED: ADENOSINE 60 MG/20 ML VIAL ONE (10:33)
[2018-01-29] MEDS: Famotidine 20 MG TAB PO SCH (11:56)
[2018-01-29 12:09] VITALS: BP 128/68; TEMP 97.8
--- NOTE | 2018-01-29 13:34 | NM ---
CARDIAC SPECT: HISTORY: A 72-year-old male with chest pain. Atrial fibrillation. TECHNIQUE: A myocardial perfusion scan was performed using the single isotope one-day protocol with technetium 9 9m sestamibi. Pharmacologic stress with adenosine was monitored and interpreted by Dr. Chappell. FINDINGS: A homogeneous tracer distribution is seen in the myocardial segments on stress and rest images withou t fixed or reversible defects. GATED SPECT LVEF: 66% WALL MOTION EXAM: Normal. IMPRESSION: Normal myocardial perfusion scan. POS: [facility]
--- NOTE | 2018-01-29 13:50 | DIS ---
DATE OF ADMISSION: 01/27/2018 DATE OF DISCHARGE: 01/29/2018 TRANSFER OF CARE PRIMARY CARE PROVIDER: None. DISCHARGE DISPOSITION: Discharged home. FINAL DIAGNOSES: Nonsustained ventricular tachycardia, history of recent cholecystectomy for cholecy stitis and choledocholithiasis, history of atrial fibrillation, history of recent sepsis. HOSPITAL COURSE: The patient was notified that his loop recorder that had been placed on by Dr. Ervin freeman revealed nonsustained V-tach. Dr. Rascon was called. He was placed in the hospital. The mireya acharya was on quinolone antibiotic. This was discontinued. He was monitored. Dr. Garza saw him i n followup. Cardiolite stress test was done, which revealed no evidence of ischemia. The patient parrish s had no further arrhythmias. He has had 2 days of a different appropriate antibiotic and has comple garrett his course of antibiotics. He is being discharged home on metoprolol XL 25 mg a day, to be follo wed up by Dr. Garza in the future. This is to be arranged. He has his recorder on, continue to w ear that. PERTINENT LABORATORY DATA: CBC was normal. Comp metabolic profile, sodium 135, otherwise normal. C ardiac enzymes normal x2.
== END 2018-01-29 15:08 | disposition home or self-care (01) ==
LOC: ERS 14:16 → 2SW 15:00
PROVIDERS: ADMIT Internal Medicine Infectious Disease; ATTEND Internal Medicine Infectious Disease
DX: I47.2 Ventricular tachycardia (principal); A41.51 Sepsis due to Escherichia coli [E. coli]; I48.0 Paroxysmal atrial fibrillation; Z79.2 Long term (current) use of antibiotics; Z79.01 Long term (current) use of anticoagulants; Z95.818 Presence of other cardiac implants and grafts; Z90.49 Acquired absence of other specified parts of digestive tract
CPT/HCPCS: 71045; 78452; 80048; 80053; 82550; 82553 ×3; 83690; 83735; 84484 ×3; 85025 ×2; 93005; 93017; 96365; 99285; A9500; G0378 ×2; 36415; J0153; J0696; J7050

== ENCOUNTER 2022-02-17 13:59 | Emergency (ER) | payer MEDICARE ==
[2022-02-17] MEDS ORDERED: Lidocaine 1% PF 5 ML VIAL ONE (14:48)
== END 2022-02-17 15:55 | disposition home or self-care (01) ==
LOC: ERS 13:59
DX: L05.01 Pilonidal cyst with abscess (principal); Z79.01 Long term (current) use of anticoagulants
CPT/HCPCS: 10081; 87070; 87205

== ENCOUNTER 2025-03-11 09:39 | Emergency (ER) | payer MEDICARE ==
[2025-03-11] MEDS ORDERED: Iopamidol-370 76% 500 ML MDV (1 ML CHARGE) ONE (10:11)
[2025-03-11 10:41] LABS: #Basophils 0.05 10x3/uL (0.0-0.2); #Eosinophils 0.07 10x3/uL (0.0-0.7); #Monocytes 1.23 10x3/uL (0.11-0.59); #Neutrophils 9.01 10x3/uL (1.40-6.50); %Basophils 0.4 % (0.0-1.0); %Eosinophils 0.6 % (0.0-10.0); %Lymphocytes 11.8 % (21.0-51.0); %Monocytes 10.4 % (0.0-10.0); %Neutrophils 76.5 % (42.0-75.0); Hematocrit 44.3 % (42.0-52.0); Hemoglobin 15.9 g/dL (14.0-18.0); Mean Corpuscular Hemoglobin 34.2 pg (27.0-31.0); Mean Corpuscular Volume 95.3 fL (78.0-98.0); Platelet Count 163 10x3/uL (130-400); Red Blood Cell (RBC) Count 4.65 mill/uL (4.70-6.10); White Blood Cell (WBC) Count 11.78 10x3/uL (4.8-10.8)
[2025-03-11 10:43] LABS: Bacteria/HPF None Seen HPF (None Seen); CAUTI Indications for Culture Pelvic or flank pain; Glucose, Urine (Dipstick) Normal (Negative); Leukocyte Negative Leu/uL (Negative); Protein, Urine (Dipstick) Negative (Neg-Trace); RBC/HPF None Seen HPF (0-3); Specific Gravity, Urine 1.019 (1.002-1.036); WBC/HPF 0-3 HPF (0-3)
[2025-03-11 11:03] LABS: ALT (SGPT) 8 U/L (Less than 45); AST (SGOT) 19 U/L (11-34); Albumin 4.4 g/dL (3.1-4.5); Alkaline Phosphatase 55 U/L (40-110); Anion Gap 17 mmol/L (10-20); BUN (Urea Nitrogen) 11 mg/dL (8.4-25.7); Bilirubin, Total 2.4 mg/dL (0.3-1.2); Calc. Creatinine Clearance 0 mL/min (70-130); Calcium 9.3 mg/dL (7.8-10.44); Carbon Dioxide 22 mmol/L (23-31); Chloride 102 mmol/L (98-107); Globulin 2.8 g/dL (2.4-3.5); Glucose 95 mg/dL (83-110); Lipase 41 U/L (8-78); Potassium 4.5 mmol/L (3.5-5.1); Sodium 136 mmol/L (136-145)
[2025-03-11 11:05] LABS: Urine Culture Reflex No No
[2025-03-11] MEDS ORDERED: Pantoprazole 40 MG VIAL ONE (11:05)
[2025-03-11] MEDS ORDERED: Ondansetron PF 4 MG/2 ML Vial ONE (11:05)
== END 2025-03-11 12:35 | disposition home or self-care (01) ==
LOC: ERS 09:39
DX: K57.32 Diverticulitis of large intestine without perforation or abscess without bleeding (principal)
CPT/HCPCS: 74177; 80053; 81001; 83605; 83690; 84484; 85025; 93005; J2405; 36415; 96374; 96375; J2470; Q9967